=== PATIENT | female | born 1955 | race Caucasian/White ===

== ENCOUNTER 2018-03-23 12:15 | Emergency (ER) | payer BC ==
[~2018-03-23] VITALS: Ht 160 cm; Wt 100.0 kg
[2018-03-23 13:08] LABS: BASOPHILS # (AUTO) 0.1 X10'3 (0-0.2); BASOPHILS % (AUTO) 1.2 % (0-1); EOSINOPHILS # (AUTO) 0.2 X10'3 (0-0.9); EOSINOPHILS % (AUTO) 2.2 % (0-6); HEMOGLOBIN 14.9 g/dl (12.0-16.0); LYMPHOCYTES # (AUTO) 2.5 X10'3 (1.1-4.8); MEAN CORPUSCULAR HEMOGLOBIN 29.4 PG (27.0-31.0); MEAN PLATELET VOLUME 8.9 FL (7.4-10.4); MONOCYTES # (AUTO) 0.4 X10'3 (0-0.9); MONOCYTES % (AUTO) 4.9 % (2-12); NEUTROPHILS # (AUTO) 5.2 X10'3 (1.8-7.7); NEUTROPHILS % (AUTO) 61.7 % (42-75); PLATELET COUNT 259 X10'3 (140-440); RED BLOOD COUNT 5.05 X10'6 (4.20-5.60); WHITE BLOOD COUNT 8.5 X10'3 (4.5-11.0)
[2018-03-23 13:19] LABS: URINE HCG NEGATIVE (NEG)
[2018-03-23 13:25] LABS: ALANINE AMINOTRANSFERASE 22 U/L (12-78); ALBUMIN 3.9 G/DL (3.4-5.0); ALKALINE PHOSPHATASE 112 IU/L (46-116); ANION GAP 7 (8-16); ASPARTATE AMINO TRANSFERASE 17 U/L (10-37); BILIRUBIN,TOTAL 0.6 MG/DL (0.1-1.0); BLOOD UREA NITROGEN 18 MG/DL (7-18); BUN/CREATININE RATIO 19.4 (6.6-38.0); CALCIUM 9.2 MG/DL (8.5-10.1); CHLORIDE 104 MMOL/L (99-107); CREATININE 0.93 MG/DL (0.40-0.90); ETHANOL < 0.010 GM/DL (0.0-0.010); GLUCOSE 99 MG/DL (70-104); POTASSIUM 3.7 MMOL/L (3.5-5.1); SODIUM 141 MMOL/L (135-145); TOTAL CARBON DIOXIDE 30.5 MMOL/L (24-32); TOTAL PROTEIN 7.7 G/DL (6.4-8.2); eGFR 61 ML/MIN
[2018-03-23 13:32] LABS: URINE AMPHETAMINE SCREEN NEGATIVE (Neg); URINE BARBITUATE SCREEN NEGATIVE (Neg); URINE BENZODIAZEPINES SCREEN POSITIVE (Neg); URINE CANNABINOID SCREEN NEGATIVE (Neg); URINE COCAINE SCREEN NEGATIVE (Neg); URINE METHADONE SCREEN NEGATIVE (Neg); URINE OPIATE SCREEN NEGATIVE (Neg); URINE PHENCYCLIDINE SCREEN NEGATIVE (Neg)
[2018-03-23] MEDS ORDERED: BUPR150T8 PO (15:37)
[2018-03-23] MEDS ORDERED: DIAZ5TAB PO (15:37)
[2018-03-23] MEDS ORDERED: GABA100C PO (15:37)
[2018-03-23] MEDS ORDERED: CYCL-1 PO (15:37)
[2018-03-23 16:19] VITALS: BP 199/114
[2018-03-23] MEDS ORDERED: LUTE20CA PO (16:41)
== END 2018-03-23 16:00 ==
LOC: ER 12:18 → ADULT MH 15:00 → UNDOADMIN 15:00 → ER 16:00
DX: F32.9 Major depressive disorder, single episode, unspecified (principal); I10 Essential (primary) hypertension; K21.9 Gastro-esophageal reflux disease without esophagitis; Z90.710 Acquired absence of both cervix and uterus; Z88.8 Allergy status to other drugs, medicaments and biological substances; Z79.899 Other long term (current) drug therapy
CPT/HCPCS: 36415; 80053; 80305; 80320; 81025; 84443; 85025; 99284; 99285

== ENCOUNTER 2018-03-23 15:00 | Inpatient (IN) | payer BC ==
[~2018-03-23] VITALS: Ht 160 cm; Wt 100.7 kg
[2018-03-23] MEDS ORDERED: CYCL-1 PO (15:37)
[2018-03-23] MEDS ORDERED: DIAZ5TAB PO (15:37)
[2018-03-23] MEDS ORDERED: GABA100C PO (15:37)
[2018-03-23] MEDS ORDERED: BUPR150T8 PO (15:37)
[2018-03-23] MEDS ORDERED: acetaminophen 325mg tablet PO PRN (16:00)
[2018-03-23] MEDS ORDERED: magnesium hydroxide 30ml (MOM) UD suspension PO PRN (16:00)
[2018-03-23] MEDS ORDERED: mag hydrox/Alum hydrox/simeth 30ml oral suspension PO PRN (16:00)
[2018-03-23] MEDS ORDERED: LUTE20CA PO (16:41)
[2018-03-23 17:25] VITALS: BP 180/100
[2018-03-23 20:02] VITALS: BP 134/65
[2018-03-23] MEDS: gabapentin 100mg capsule PO SCH (20:38)
[2018-03-23] MEDS: cyclobenzaprine 10mg tablet PO SCH (20:39)
[2018-03-23] MEDS: diazepam 5mg tablet PO SCH (20:39)
[2018-03-23] MEDS: buPROPion SR 150mg tablet PO SCH (20:39)
[2018-03-24 08:00] VITALS: BP 183/110
[2018-03-24] MEDS: gabapentin 100mg capsule PO SCH ×3 (08:05→20:48)
[2018-03-24] MEDS: buPROPion SR 150mg tablet PO SCH ×2 (08:05→20:48)
[2018-03-24 09:14] LABS: CHOL/HDL RATIO 4.1 (0.00-4.99); CHOLESTEROL 203 MG/DL (0-200); HDL CHOLESTEROL 49 MG/DL (35-60); LDL CHOLESTEROL 132 MG/DL (50-100); TRIGLYCERIDES 111 MG/DL (20-135)
[2018-03-24 09:15] LABS: HEMOGLOBIN A1C 6.1 % (4.5-6.2)
[2018-03-24] MEDS: lisinopril 10 MG tablet PO SCH (10:24)
[2018-03-24] MEDS: acetaminophen 325mg tablet PO PRN ×2 (10:24→19:09)
[2018-03-24 10:37] LABS: ALBUMIN 3.9 G/DL (3.4-5.0); ANION GAP 7 (8-16); BLOOD UREA NITROGEN 11 MG/DL (7-18); BUN/CREATININE RATIO 11.5 (6.6-38.0); CALCIUM 9.5 MG/DL (8.5-10.1); CHLORIDE 104 MMOL/L (99-107); CREATININE 0.96 MG/DL (0.40-0.90); GLUCOSE 112 MG/DL (70-104); POTASSIUM 3.9 MMOL/L (3.5-5.1); SODIUM 141 MMOL/L (135-145); TOTAL CARBON DIOXIDE 30.3 MMOL/L (24-32); eGFR 59 ML/MIN
[2018-03-24] MEDS ORDERED: vortioxetine HBr 10mg tablet PO ONE (13:00)
[2018-03-24] MEDS ORDERED: voritioxetine HBr 5mg tablet PO ONE (13:20)
[2018-03-24 19:00] VITALS: BP 142/77
[2018-03-24] MEDS: metFORMIN 500mg tablet PO SCH (20:48)
[2018-03-24] MEDS: cyclobenzaprine 10mg tablet PO SCH (20:48)
[2018-03-24] MEDS: diazepam 5mg tablet PO SCH (20:48)
[2018-03-25 08:00] VITALS: BP 121/89
[2018-03-25] MEDS: voritioxetine HBr 5mg tablet PO SCH (08:30)
[2018-03-25] MEDS: metFORMIN 500mg tablet PO SCH ×2 (08:30→20:09)
[2018-03-25] MEDS: lisinopril 10 MG tablet PO SCH (08:30)
[2018-03-25] MEDS: buPROPion SR 150mg tablet PO SCH ×2 (08:30→20:09)
[2018-03-25] MEDS: gabapentin 100mg capsule PO SCH ×3 (08:30→20:09)
[2018-03-25 19:00] VITALS: BP 121/81
[2018-03-25] MEDS: diazepam 5mg tablet PO SCH (20:09)
[2018-03-25] MEDS: cyclobenzaprine 10mg tablet PO SCH (20:31)
[2018-03-26] MEDS ORDERED: METF500T6 PO (07:55)
[2018-03-26] MEDS ORDERED: VORT5TAB PO (07:55)
[2018-03-26 08:00] VITALS: BP 138/81
[2018-03-26] MEDS: voritioxetine HBr 5mg tablet PO SCH (08:22)
[2018-03-26] MEDS: lisinopril 10 MG tablet PO SCH (08:22)
[2018-03-26] MEDS: metFORMIN 500mg tablet PO SCH (08:22)
[2018-03-26] MEDS: gabapentin 100mg capsule PO SCH (08:22)
[2018-03-26] MEDS: buPROPion SR 150mg tablet PO SCH (08:22)
== END 2018-03-26 12:56 | disposition home or self-care (01) | DRG 885 ==
LOC: ADULT MH 15:00
PROVIDERS: ADMIT Psychiatry & Neurology Psychiatry; ATTEND Psychiatry & Neurology Psychiatry
DX: F33.9 Major depressive disorder, recurrent, unspecified (principal); A69.20 Lyme disease, unspecified; A77.0 Spotted fever due to Rickettsia rickettsii; R45.851 Suicidal ideations; E11.9 Type 2 diabetes mellitus without complications; E66.01 Morbid (severe) obesity due to excess calories; G30.9 Alzheimer's disease, unspecified; F02.80 Dementia in other diseases classified elsewhere, unspecified severity, without behavioral disturbance, psychotic disturbance, mood disturbance, and anxiety; R03.0 Elevated blood-pressure reading, without diagnosis of hypertension; F34.1 Dysthymic disorder; Z88.1 Allergy status to other antibiotic agents; Z81.1 Family history of alcohol abuse and dependence; Z81.8 Family history of other mental and behavioral disorders; Z86.19 Personal history of other infectious and parasitic diseases; Z90.710 Acquired absence of both cervix and uterus; Z98.84 Bariatric surgery status; Z79.899 Other long term (current) drug therapy; Z98.891 History of uterine scar from previous surgery; Z68.39 Body mass index [BMI] 39.0-39.9, adult; Z79.84 Long term (current) use of oral hypoglycemic drugs
CPT/HCPCS: 36415; 80048; 80061; 83036; 87070; 93971; 99285